=== PATIENT | male | born 1980 | race Hispanic/Latino ===

== ENCOUNTER → 2019-09-28 | Outpatient (CLI) | payer OTHER ==
--- NOTE | 2019-09-28 10:07 | Diagnostic Imaging Report ---
MRI of the right shoulder without contrast. History: Shoulder pain. Muscle strain. Fall. Decreased range of motion Comparison: None Technique: Coronal PD FS, sagital PD FS, and axial PD and PD FS. Findings: Rotator cuff: Rotator cuff tendinosis with full-thickness tear involving the anterior fibers of the supraspinatus tendon at the humeral insertion site. Minimal retraction of the torn fibers and mild supraspinatus muscle atrophy. Additionally, there is subscapularis tendinosis with articular sided partial tearing. Infraspinatus tendinosis. The teres minor tendon is intact. Osseous acromion complex: Type II acromion with mild lateral downsloping. Mild degenerative arthrosis at the acromioclavicular joint with undersurface spurring and narrowing of the supraspinatus tendon outlet. Mild subacromial/subdeltoid bursitis. Glenohumeral joint: Degeneration and fraying of the labrum. The articular cartilage surfaces are intact. The humeral head is well-seated in the glenoid fossa. Biceps tendon: Intra-articular biceps tendinosis with partial tearing involving the long head of the biceps tendon along the shaft of the proximal humerus best seen on axial series 2 image 21. Other findings: Negative for muscle denervation or osseous fracture. Impression: Rotator cuff tendinosis with full-thickness tear involving the anterior fibers of the supraspinatus tendon at the humeral insertion site. Minimal retraction of the torn fibers and mild supraspinatus muscle atrophy. Additionally, there is subscapularis tendinosis with articular sided partial tearing. Intra-articular biceps tendinosis with partial tearing involving the long head of the biceps tendon along the shaft of the proximal humerus Signed by: Dr. Stewart Esquivel M.D. on 09/28/2019 10:05 AM
== END ==
LOC: EDSEX 08:54 → MRI 08:54
PROVIDERS: ATTEND Family Medicine
DX: M25.511 Pain in right shoulder (principal); S46.811A Strain of other muscles, fascia and tendons at shoulder and upper arm level, right arm, initial encounter